=== PATIENT | male | born 1950 | race Caucasian/White ===

== ENCOUNTER 2023-08-18 10:41 | Day surgery (SDC) | payer MEDICARE ==
[2023-08-14 10:55] LABS: PRE OP HEMOGLOBIN 16.4 g/dL (14.0-17.9)
[2023-08-14 10:57] LABS: BASOPHILS % (AUTO) 0.4 % (0-1); EOSINOPHILS # (AUTO) 0.1 X10'3 (0-0.9); EOSINOPHILS % (AUTO) 1.1 % (0-6); LYMPHOCYTES # (AUTO) 2.1 X10'3 (1.1-4.8); LYMPHOCYTES % (AUTO) 20.7 % (21-51); MEAN CORPUSCULAR HGB CONC 34.2 g/dL (33.0-36.5); MEAN CORPUSCULAR VOLUME 90.7 FL (78-98); MEAN PLATELET VOLUME 7.7 FL (7.4-10.4); MONOCYTES # (AUTO) 0.6 X10'3 (0-0.9); MONOCYTES % (AUTO) 5.7 % (2-12); NEUTROPHILS # (AUTO) 7.4 X10'3 (1.8-7.7); NEUTROPHILS % (AUTO) 72.1 % (42-75); PRE OP PLATELET COUNT 191 X10'3 (140-440); PRE OP WHITE BLOOD COUNT 10.2 10'3 (4.8-10.8); RED BLOOD COUNT 5.29 X10'6 (4.70-6.10); RED CELL DISTRIBUTION WIDTH 14.4 % (11.5-14.5)
[2023-08-14 11:22] LABS: ALBUMIN 3.5 G/DL (3.4-5.0); ALBUMIN/GLOBULIN RATIO 0.9 (1.1-1.5); ALKALINE PHOSPHATASE 110 IU/L (46-116); BLOOD UREA NITROGEN 13 MG/DL (7-18); BUN/CREATININE RATIO 13.4 (10.0-20.0); CALCIUM 9.1 MG/DL (8.5-10.1); CHLORIDE 106 MMOL/L (99-107); CREATININE 0.97 MG/DL (0.60-1.10); PRE OP ALT 50 U/L (30-65); PRE OP ANION GAP 11 (8-16); PRE OP AST 31 U/L (10-37); PRE OP BILIRUB, TOTAL 0.7 MG/DL (0.0-1.0); PRE OP GLUCOSE 153 MG/DL (70-104); PRE OP POTASSIUM 3.7 MMOL/L (3.4-5.1); PRE OP SODIUM 141 MMOL/L (135-145); TOTAL CARBON DIOXIDE 23.6 MMOL/L (24-32); TOTAL PROTEIN 7.2 G/DL (6.4-8.2); eGFR 76 ML/MIN
[~2023-08-18] VITALS: Ht 213.4 cm; Wt 95.9 kg
[2023-08-18] VITALS (8 sets, daily range): BP systolic 130–148; BP diastolic 57–79; PULSE 62–81; RESP 15–20; TEMP 96.6; O2SAT 94–100
[~2023-08-18 10:41] MED LIST: ATOR10TA87 PO; CHOL400T PO; CHONDROITIN PO; FOLI0.4T14 PO; GLUCOSAMINE PO; METH25VI11 SUBCUT; UBID100C16 PO; VITA-268 PO; famotidine 20mg tablet PO ONE; ringers solution, lacted 1,000 ML IV SCH
[2023-08-18] MEDS ORDERED: sevoflurane 250ml liquid IH ONE (11:49)
[2023-08-18] MEDS ORDERED: fentaNYL/PF 50MCG/1 ML 2ML syringe ONE (11:50)
[2023-08-18] MEDS ORDERED: midazolam 1 mg/ML 2ml injection ONE (11:50)
[2023-08-18] MEDS ORDERED: rocuronium 10mg/ml inj IV ONE (11:51)
[2023-08-18] MEDS ORDERED: propofol inj 20 ML IV ONE (11:51)
[2023-08-18] MEDS ORDERED: ondansetron/PF 4mg/2ml inj IV PRN (12:30)
[2023-08-18] MEDS ORDERED: proCHLORperazine 10 MG/2 ml inj IV PRN (12:30)
[2023-08-18] MEDS ORDERED: ringers solution, lacted 1,000 ML IV SCH (12:30)
[2023-08-18] MEDS ORDERED: morphine 2 MG/ML inj. syringe IV PRN (12:30)
[2023-08-18] MEDS ORDERED: meperidine/PF 25mg/ml syringe IV PRN ×3 (12:30)
[2023-08-18] MEDS ORDERED: morphine 4 MG/ML inj SYRINge IV PRN (12:30)
[2023-08-18] MEDS ORDERED: ondansetron/PF 4mg/2ml inj ONE (12:42)
[2023-08-18] MEDS ORDERED: dexamethasone sod phosphate 4mg/ml inj. ONE (12:42)
[2023-08-18] MEDS ORDERED: sugammadex 200mg/2ml injection IV ONE (12:43)
== END 2023-08-18 14:01 | disposition home or self-care (01) ==
LOC: PAS 10:41
PROVIDERS: ATTEND Internal Medicine Critical Care Medicine
DX: R91.8 Other nonspecific abnormal finding of lung field (principal); E78.5 Hyperlipidemia, unspecified; Z98.890 Other specified postprocedural states; Z87.891 Personal history of nicotine dependence; Z85.51 Personal history of malignant neoplasm of bladder; Z85.528 Personal history of other malignant neoplasm of kidney; Z79.899 Other long term (current) drug therapy; Z80.1 Family history of malignant neoplasm of trachea, bronchus and lung
CPT/HCPCS: 31624; 31628; 31629; 31653; 36415; 71045; 71250; 80053; 82948; 85025; 87015; 87070; 87102; 87116; 87206; 94760; J1100; J2250; J2405; J2704; J3010; J3490; J7120; Z7506; Z7508; Z7512; 31622; 31625; 31626; 31627; 31654; A4618

== ENCOUNTER 2023-12-21 10:09 | Outpatient (CLI) | payer MEDICARE ==
[~2023-12-21] VITALS: Ht 182.9 cm; Wt 98.9 kg
[~2023-12-21 10:09] MED LIST changes: -famotidine 20mg tablet PO ONE; -ringers solution, lacted 1,000 ML IV SCH
[2023-12-21 10:31] LABS: ABG BASE EXCESS -1.6 mmol/L (-2.0-2.0); ABG HCO3 22.5 mmol/L (22.0-26.0); ABG OXYGEN SATURATION 94.9 % (94-97); ABG PCO2 (T) 36.5 mmHg (35.0-48.0); ABG PH (T) 7.407 (7.340-7.440); ABG PO2 (T) 75.4 mmHg (75.0-100.0); ALLEN'S TEST POSITIVE; FCOHb 0.3 % (0.0-3.9); FHHb 5.1 % (0.0-5.0); FMetHb 0.3 % (0.0-1.5); FO2Hb 94.3 % (94-97); MODE ROOM AIR; TOTAL HEMOGLOBIN 16.1 G/dl (14.0-17.9)
[2023-12-21] MEDS: albuterol 2.5 MG/3 ML nebule NEB PRN (10:59)
[2023-12-21 11:06] VITALS: PULSE 78; RESP 14; O2SAT 78
== END 2023-12-21 23:59 | disposition home or self-care (01) ==
LOC: RT 10:09
PROVIDERS: ATTEND Surgery
DX: J98.4 Other disorders of lung (principal)
CPT/HCPCS: 36600; 82803; 85018; 94060; 94727; 94729; 94760